=== PATIENT | male | born 1950 | race Caucasian/White ===

== ENCOUNTER 2021-04-24 10:40 | Day surgery (SDC) | payer MEDICARE, OTHER ==
[~2021-04-24] VITALS: Wt 107.6 kg
[~2021-04-24 10:40] MED LIST: ALPR.5 PO; ASPI325 PO; Aspir 8181 MG PO; CATAPRES0.1 MG PO; DIGO.25 PO; HYDACE5 PO; IBUHYD PO; KETO10 PO; METO100ER PO; PAIN MEDS; XARELTO20 MG PO; Zocor10 MG PO
--- NOTE | 2021-04-24 11:45 | NUR ---
04/24/21 1145 YOVANY CEDENO BP REPORTED TO ANETHESIOLOGIST 196/105
--- NOTE | 2021-04-24 12:04 | NUR ---
04/24/[address] BUPIVACAINE 0.5% 50 MLS MIXED WITH 0.25 ML EPI PER ORDER TO CONSTITUTE BUPIVACAINE 0.5% 1:200,000 FOR INJECTION AT OPSITE BY DR CRUZ. 30 MLS INJECTED.
== END 2021-04-24 13:55 | disposition home or self-care (01) ==
LOC: ORSCSDS 10:40
DX: M21.612 Bunion of left foot (principal); M19.072 Primary osteoarthritis, left ankle and foot; I10 Essential (primary) hypertension; I48.91 Unspecified atrial fibrillation; Z79.01 Long term (current) use of anticoagulants; I25.10 Atherosclerotic heart disease of native coronary artery without angina pectoris; Z95.0 Presence of cardiac pacemaker; F41.9 Anxiety disorder, unspecified; Z79.899 Other long term (current) drug therapy; Z79.82 Long term (current) use of aspirin
CPT/HCPCS: A9270; C1776; J0171; J0690; J1100; J1885; J2250; J2405; J2704; J3010; J7120